=== PATIENT | female | born 1965 | race Caucasian/White ===

== ENCOUNTER 2020-05-09 10:27 | Emergency (ER) | payer OTHER, SELFPAY ==
--- NOTE | ~2020-05-09 | XR_ITS ---
EXAMINATION: THORACIC, LUMBAR AND SACROCOCCYGEAL SPINE. PLEURAL LEFT SCAPULA. LEFT RIBS WITH CHEST X-RAY. CLINICAL INFORMATION: Fell down the stairs. Pain. COMPARISON: None TECHNIQUE: 1 view chest and 3 views left RIBS. Left scapula 2 views. Thoracic spine 3 views. Lumbar spine 3 views. Sacrum and coccyx 2 views. FINDINGS: Chest: The lungs are well-expanded and clear of acute process heart size and pulmonary vascularity is normal. There is mild dextro scoliosis. Multiple views of left ribs reveal no visible left rib fracture. Left scapula: There is no visible acute fracture or bony abnormality. The soft tissues are normal. Dorsal spine: There is normal thoracic kyphosis. The vertebral heights, alignment and disc heights are normal. There is no visible acute fracture, dislocation or subluxation. There is mild dextroscoliosis mid dorsal spine. Lumbar spine: There is normal lumbar lordosis. The vertebral heights, alignment and disc heights are normal. No visible acute fracture, dislocation or lytic process seen. There is lumbarized S1 vertebra with a rudimentary S1-S2 disc. Sacrum/coccyx there is no visible fracture or dislocation. No bony abnormality. The soft tissues are normal. XR/XR sacrum coccyx min 2V IMPRESSION: Unremarkable chest exam and left ribs. No acute fracture seen. There is no visible acute fracture involving the left scapula. No acute fracture involving the dorsal or lumbar spine. Unremarkable sacrum and/or coccyx.
--- NOTE | ~2020-05-09 | CT_ITS ---
EXAMINATION: CT CERVICAL SPINE WITHOUT CONTRAST CLINICAL INFORMATION: Fall COMPARISON: None TECHNIQUE: Axial images through the cervical spine without contrast. This CT examination was performed using dose optimization techniques as appropriate, variously including the following: *Automated exposure control *Adjustment of mA and/or kV according to patient size (this includes techniques or standardized protocols for targeted exams where dose is matched to indication/reason for exam; i.e. extremities or head) *Use of iterative reconstruction technique DLP: 684 mGy-cm FINDINGS: Bone alignment is normal. No fracture or dislocation is seen. There is degenerative spondylosis and disc space narrowing at C5-C6 and C6-C7. There is degenerative spondylosis at C3-C4 and C4-C5. Prevertebral soft tissues are normal. There is shotty cervical lymphadenopathy. There is prominent soft tissue seen in the posterior oropharynx. The visualized lung apices are clear. CT/CT cervical spine wo con IMPRESSION: Degenerative changes. No fracture or dislocation seen. Diffuse shotty cervical lymphadenopathy and prominent soft tissue in the posterior oropharynx.
--- NOTE | ~2020-05-09 | XR_ITS ---
EXAMINATION: THORACIC, LUMBAR AND SACROCOCCYGEAL SPINE. PLEURAL LEFT SCAPULA. LEFT RIBS WITH CHEST X-RAY. CLINICAL INFORMATION: Fell down the stairs. Pain. COMPARISON: None TECHNIQUE: 1 view chest and 3 views left RIBS. Left scapula 2 views. Thoracic spine 3 views. Lumbar spine 3 views. Sacrum and coccyx 2 views. FINDINGS: Chest: The lungs are well-expanded and clear of acute process heart size and pulmonary vascularity is normal. There is mild dextro scoliosis. Multiple views of left ribs reveal no visible left rib fracture. Left scapula: There is no visible acute fracture or bony abnormality. The soft tissues are normal. Dorsal spine: There is normal thoracic kyphosis. The vertebral heights, alignment and disc heights are normal. There is no visible acute fracture, dislocation or subluxation. There is mild dextroscoliosis mid dorsal spine. Lumbar spine: There is normal lumbar lordosis. The vertebral heights, alignment and disc heights are normal. No visible acute fracture, dislocation or lytic process seen. There is lumbarized S1 vertebra with a rudimentary S1-S2 disc. Sacrum/coccyx there is no visible fracture or dislocation. No bony abnormality. The soft tissues are normal. XR/XR ribs LT min 3V w CXR1V IMPRESSION: Unremarkable chest exam and left ribs. No acute fracture seen. There is no visible acute fracture involving the left scapula. No acute fracture involving the dorsal or lumbar spine. Unremarkable sacrum and/or coccyx.
--- NOTE | ~2020-05-09 | XR_ITS ---
EXAMINATION: THORACIC, LUMBAR AND SACROCOCCYGEAL SPINE. PLEURAL LEFT SCAPULA. LEFT RIBS WITH CHEST X-RAY. CLINICAL INFORMATION: Fell down the stairs. Pain. COMPARISON: None TECHNIQUE: 1 view chest and 3 views left RIBS. Left scapula 2 views. Thoracic spine 3 views. Lumbar spine 3 views. Sacrum and coccyx 2 views. FINDINGS: Chest: The lungs are well-expanded and clear of acute process heart size and pulmonary vascularity is normal. There is mild dextro scoliosis. Multiple views of left ribs reveal no visible left rib fracture. Left scapula: There is no visible acute fracture or bony abnormality. The soft tissues are normal. Dorsal spine: There is normal thoracic kyphosis. The vertebral heights, alignment and disc heights are normal. There is no visible acute fracture, dislocation or subluxation. There is mild dextroscoliosis mid dorsal spine. Lumbar spine: There is normal lumbar lordosis. The vertebral heights, alignment and disc heights are normal. No visible acute fracture, dislocation or lytic process seen. There is lumbarized S1 vertebra with a rudimentary S1-S2 disc. Sacrum/coccyx there is no visible fracture or dislocation. No bony abnormality. The soft tissues are normal. XR/XR thoracic spine 3V IMPRESSION: Unremarkable chest exam and left ribs. No acute fracture seen. There is no visible acute fracture involving the left scapula. No acute fracture involving the dorsal or lumbar spine. Unremarkable sacrum and/or coccyx.
--- NOTE | ~2020-05-09 | XR_ITS ---
EXAMINATION: THORACIC, LUMBAR AND SACROCOCCYGEAL SPINE. PLEURAL LEFT SCAPULA. LEFT RIBS WITH CHEST X-RAY. CLINICAL INFORMATION: Fell down the stairs. Pain. COMPARISON: None TECHNIQUE: 1 view chest and 3 views left RIBS. Left scapula 2 views. Thoracic spine 3 views. Lumbar spine 3 views. Sacrum and coccyx 2 views. FINDINGS: Chest: The lungs are well-expanded and clear of acute process heart size and pulmonary vascularity is normal. There is mild dextro scoliosis. Multiple views of left ribs reveal no visible left rib fracture. Left scapula: There is no visible acute fracture or bony abnormality. The soft tissues are normal. Dorsal spine: There is normal thoracic kyphosis. The vertebral heights, alignment and disc heights are normal. There is no visible acute fracture, dislocation or subluxation. There is mild dextroscoliosis mid dorsal spine. Lumbar spine: There is normal lumbar lordosis. The vertebral heights, alignment and disc heights are normal. No visible acute fracture, dislocation or lytic process seen. There is lumbarized S1 vertebra with a rudimentary S1-S2 disc. Sacrum/coccyx there is no visible fracture or dislocation. No bony abnormality. The soft tissues are normal. XR/XR lumbar spine 2-3V IMPRESSION: Unremarkable chest exam and left ribs. No acute fracture seen. There is no visible acute fracture involving the left scapula. No acute fracture involving the dorsal or lumbar spine. Unremarkable sacrum and/or coccyx.
--- NOTE | ~2020-05-09 | XR_ITS ---
EXAMINATION: THORACIC, LUMBAR AND SACROCOCCYGEAL SPINE. PLEURAL LEFT SCAPULA. LEFT RIBS WITH CHEST X-RAY. CLINICAL INFORMATION: Fell down the stairs. Pain. COMPARISON: None TECHNIQUE: 1 view chest and 3 views left RIBS. Left scapula 2 views. Thoracic spine 3 views. Lumbar spine 3 views. Sacrum and coccyx 2 views. FINDINGS: Chest: The lungs are well-expanded and clear of acute process heart size and pulmonary vascularity is normal. There is mild dextro scoliosis. Multiple views of left ribs reveal no visible left rib fracture. Left scapula: There is no visible acute fracture or bony abnormality. The soft tissues are normal. Dorsal spine: There is normal thoracic kyphosis. The vertebral heights, alignment and disc heights are normal. There is no visible acute fracture, dislocation or subluxation. There is mild dextroscoliosis mid dorsal spine. Lumbar spine: There is normal lumbar lordosis. The vertebral heights, alignment and disc heights are normal. No visible acute fracture, dislocation or lytic process seen. There is lumbarized S1 vertebra with a rudimentary S1-S2 disc. Sacrum/coccyx there is no visible fracture or dislocation. No bony abnormality. The soft tissues are normal. XR/XR scapula LT IMPRESSION: Unremarkable chest exam and left ribs. No acute fracture seen. There is no visible acute fracture involving the left scapula. No acute fracture involving the dorsal or lumbar spine. Unremarkable sacrum and/or coccyx.
[2020-05-09 10:30] VITALS: BP 151/92; PULSE 81; RESP 20; TEMP 36.3; O2SAT 99; BMI 30.4
--- NOTE | 2020-05-09 12:00 | PC.NURSE ---
rectal exam performed by provider with assist of this nurse
--- NOTE | 2020-05-09 12:12 | PC.NURSE ---
pt to xray
--- NOTE | 2020-05-09 12:17 | ED.FALL ---
HPI - Fall General Chief Complaint: Fall Stated Complaint: FELL DOWN STAIRS Time Seen by Provider: 05/09/20 11:11 Source: patient Mode of arrival: ambulatory History of Present Illness HPI Narrative: 55-year-old female with no significant past medical history presenting to the ED complaining of neck, back, and buttock pain s/p mechanical slip and fall down a flight of stairs last night. Reports been fell down about 10-14 stairs due to her slippers, denies head trauma or LOC. Reports landed on back/buttock, has been ambulatory since the incident. Admits to left lower extremity tingling. Reports hesitancy when urinating due to buttock pain, denies urinary incontinence/retention, weakness, numbness, fever MD complaint: fall Onset (ago): day(s) Related Data Previous Rx's Medication Instructions Recorded acetaminophen [Tylenol Extra 500 mg PO Q6H PRN #20 tab 05/09/20 Strength] cyclobenzaprine 5 mg PO Q8H PRN 5 Days #14 tab 05/09/20 lidocaine [Lidoderm] 1 patch TOPICAL DAILY PRN #30 ea 05/09/20 MDD remove after 12 hours oxycodone-acetaminophen [Percocet] 1 tab PO Q8H PRN 3 Days #9 tab 05/09/20 Allergies Allergy/AdvReac Type Severity Reaction Status Date / Time morphine [Morphine] Allergy Unknown VOMITING- VIOLENTLY Unverified 11/22/19 14:47 ILL Review of Systems Review of Systems: Constitutional: No Fever, No Chills Gastrointestinal: No Nausea, No Vomiting Genitourinary: No Urinary Incontinence/retention Musculoskeletal: +joint pain, + Myalgias, No Joint Swelling Skin: No Skin Lesions, No rash Neuro: No Weakness, No Numbness, + Paresthesias Yes all other systems are reviewed and are negative [facility] Past Medical History Attestation statement: The following information was validated with the patient. Social History Social History Alcohol intake: former Smoking Status: Current every day smoker Use of substances other than those prescribed or required for medical reasons: Yes Substance Use Type: Marijuana Advance Directives: Yes Advance Directives Information Provided: Yes Advance Directives on File: No Physical Exam Vital Signs: Vital Signs: Last Vital Signs Temp 97.9 F 05/09/20 13:19 Pulse 72 05/09/20 13:19 Resp 16 05/09/20 13:19 BP 117/70 05/09/20 13:19 Pulse Ox 97 05/09/20 13:19 Body Mass Index 30.4 Const: General: cooperative and healthy appearing Orientation/consciousness: patient oriented x3 Limitations: no limitations HENMT: Head: Yes normal to inspection Ears: hearing grossly normal bilaterally General nose exam: Normal external nose present Face and sinus: Yes normal facial exam Eyes: General: appearance normal, both eyes and all related structures EOM: EOMs intact bilaterally Neck: Other: + midline cervical spinous tenderness. No step-off/deformity. Neck: Yes full ROM and No midline deformity Chest: Other: Left-sided lateral posterior chest/rib tenderness to palpation and left scapular tenderness to palpation Chest palpation & inspection: no crepitus and tenderness Resp: Effort & Inspection: normal respiratory effort Cardio: Rate: regular rate GI: Inspection: Yes normal to inspection Palpation (GI): Soft to palpation Back/Spine/Pelvis: Other: No midline thoracic/lumbar spinous tenderness or step-offs. + midthoracic abrasion. + paraspinal thoracic and lumbar spinous tenderness + coccyx tenderness. + left buttock ecchymosis/swelling and tenderness to palpation Pelvis stable Skin: Rashes: no rashes Wounds: no wounds Neuro: Other: No saddle anesthesia. Perianal sensation intact to light touch. Rectal tone intact General: patient oriented x3, gait normal, tone normal and moves all extremities Gait exam (Neuro): Normal gait present Motor exam (neuro): 5/5 motor strength present throughout Extrem: General: Yes normal to inspection Course Course Course Narrative: CT cervical spine wo con IMPRESSION: Degenerative changes. No fracture or dislocation seen. Diffuse shotty cervical lymphadenopathy and prominent soft tissue in the posterior oropharynx. XR ribs LT min 3V w CXR1V IMPRESSION: Unremarkable chest exam and left ribs. No acute fracture seen. There is no visible acute fracture involving the left scapula. No acute fracture involving the dorsal or lumbar spine. Unremarkable sacrum and/or coccyx. > imaging results discussed with patient including worrisome signs and symptoms and strict return precautions. She verbalized understanding feel safe for discharge home to follow-up with PCP MDM - Fall MDM Narrative Medical decision making narrative: 55-year-old female with no significant past medical history presenting to the ED complaining of neck, back, and buttock pain s/p mechanical slip and fall down a flight of stairs last night. On exam VSS, NAD, physical exam as above. + midline cervical spinous tenderness. No red flag symptoms no saddle anesthesia, rectal tone intact, perianal sensation intact. Rule out fracture/dislocation. Low concern for cauda equina/cord compression. Plan: Imaging, pain management, re-evaluated Differential Diagnosis Differential diagnosis: Likely fracture and compression fracture Medical Records Attestation: I reviewed the patient's medical records. Lab Data Attestation: I reviewed the patient's lab results. Discharge Plan Discharge Clinical Impression: Back pain, Acute neck pain, Fall Patient Disposition: Home, Self-Care Instructions: Back Pain (ED) Additional Instructions: Your imaging studies did not show any acute findings Your pain is likely musculoskeletal Flexeril is a muscle relaxer, take at night as it makes you drowsy, do not drive, drink alcohol, or operate machinery while taking it Lidoderm patches are numbing patches, apply to painful area Percocet is an opiate pain medication, take only main pain is severe for the next 3 days. In addition take Tylenol at home. However be aware Percocet as Tylenol mixed in, do not exceed 4 g of Tylenol and 1 day If symptoms persist or worsen, pain becomes unbearable, you developed urinary retention or incontinence, or weakness return to the ED Be sure to follow-up with her primary care doctor Prescriptions: New acetaminophen [Tylenol Extra Strength] 500 mg tablet 500 mg PO Q6H PRN (Reason: pain or fever) Qty: 20 RF: 0 lidocaine [Lidoderm] 5 % adhesive patch,medicated 1 patch topical DAILY MDD remove after 12 hours PRN (Reason: pain) Qty: 30 RF: 0 cyclobenzaprine 5 mg tablet 5 mg PO Q8H PRN (Reason: pain (scale score 7-10)) 5 Days Qty: 14 RF: 0 oxycodone-acetaminophen [Percocet] 5-325 mg tablet 1 tab PO Q8H PRN (Reason: pain, severe) 3 Days Qty: 9 RF: 0 Referrals: Physician,Unknown [Primary Care Provider] - 3 days Interventions: ED Discharge Assessment Last Done: 05/09/20 13:58 Discharge Date/Time: 05/09/20 13:58
[2020-05-09] MEDS: Acetaminophen 325 MG TABLET 650 MG PO (12:31)
[2020-05-09] MEDS: Cyclobenzaprine HCl 10 MG TABLET PO (12:31)
--- NOTE | 2020-05-09 12:34 | PC.NURSE ---
pt medicated per order
[2020-05-09 13:19] VITALS: BP 117/70; PULSE 72; RESP 16; TEMP 36.6; O2SAT 97
== END 2020-05-09 13:58 | disposition home or self-care (01) ==
PROVIDERS: Emergency Provider Emergency Medicine
DX: G89.11 Acute pain due to trauma (principal); M54.5 Low back pain; M54.2 Cervicalgia; R20.2 Paresthesia of skin; F17.200 Nicotine dependence, unspecified, uncomplicated; F12.90 Cannabis use, unspecified, uncomplicated
CPT/HCPCS: 71101; 72072; 72100; 72125; 72220; 73010; 99284

== ENCOUNTER 2020-05-15 10:35 | Emergency (ER) | payer OTHER, SELFPAY ==
--- NOTE | ~2020-05-15 | CT_ITS ---
EXAMINATION: CT ABDOMEN AND PELVIS WITHOUT CONTRAST CLINICAL INFORMATION: Pain COMPARISON: None TECHNIQUE: Multidetector volumetric imaging was performed from the superior aspect of the liver through the pubic symphysis. Sagittal and coronal reformatted images were obtained on the technologist's workstation. No oral or intravenous contrast. This CT examination was performed using dose optimization techniques as appropriate, variously including the following: *Automated exposure control *Adjustment of mA and/or kV according to patient size (this includes techniques or standardized protocols for targeted exams where dose is matched to indication/reason for exam; i.e. extremities or head) *Use of iterative reconstruction technique DLP: 710 mGy-cm FINDINGS: LUNG BASES: The lung bases are clear. LIVER, GALLBLADDER, AND BILIARY TREE: The liver is normal in size, shape, and attenuation. No focal hepatic lesion or biliary ductal dilatation is present. There is been prior cholecystectomy. Common duct unremarkable. PANCREAS: Unremarkable. SPLEEN: Unremarkable. ADRENAL GLANDS: Unremarkable. KIDNEYS AND URETERS: The kidneys are normal in size, shape, and attenuation. No hydronephrosis, hydroureter, or calculi seen. No perinephric stranding. BLADDER: Unremarkable. GASTROINTESTINAL TRACT: There is no bowel obstruction or inflammatory changes in the bowel or mesentery. The appendix is normal. There is no ascites or fluid collection. ABDOMINAL WALL: Small fat-containing ventral hernia 11 cm superior to the umbilicus measuring approximately 4 x 3 x 3 cm. There is borderline fat-containing umbilical hernia under 2 cm and borderline fatty herniation at the inguinal regions. LYMPH NODES: No lymphadenopathy. VASCULAR: Unremarkable. PELVIC VISCERA: No adnexal mass or pelvic ascites. The osseous structures below. OSSEOUS STRUCTURES: There is a subcutaneous crescent-shaped collection of fluid attenuation (2HU - 7HU) overlying the left gluteus muscles and measuring 3.3 x 12.8 cm x 12 cm in length. There is no fracture or destructive process. No suspicious bony abnormality. CT/CT abdomen pelvis wo con IMPRESSION: 1. Superficial crescent shaped fluid collection overlying left gluteus muscles 3.3 x 12.8 x 12.0 cm, possibly hematoma in the appropriate clinical setting. Clinically correlate. 2. Small fat-containing ventral hernia 4 x 3 cm. Borderline fat-containing umbilical and inguinal hernias. 3. No bowel obstruction or inflammatory changes in bowel or mesentery. Normal appendix.
[2020-05-15 12:14] VITALS: BP 135/87; PULSE 73; RESP 17; TEMP 36.6; O2SAT 99; BMI 30.4
--- NOTE | 2020-05-15 13:49 | ED.FALL ---
HPI - Fall General Chief Complaint: Fall Stated Complaint: fell back inj Time Seen by Provider: 05/15/20 13:44 Source: patient Mode of arrival: ambulatory Limitations: no limitations History of Present Illness HPI Narrative: This is a 55-year-old female who denies any significant past medical or surgical history she presents ambulatory with complaint of pain to the states she was seen here 6 days ago on 05/09/2020 after she had a slip and fall where she lost her footing and slipped down about 10 steps at home. States she was subsequently seen here in the ER had workup and she was sent home with pain patch and muscle relaxants states they have been helping but she has bruising on her coccyx and pain in the region along with left gluteus region. She denies any new injury. No GI symptoms. No chest pain or shortness of breath. States due to the bruising and the pain her family became concerned and told her come back here for re-evaluation. MD complaint: fall Onset (ago): day(s) Place fall occurred: home Loss of consciousness: none Symptoms prior to fall: none Related Data Previous Rx's Medication Instructions Recorded acetaminophen [Tylenol Extra 500 mg PO Q6H PRN #20 tab 05/09/20 Strength] cyclobenzaprine 5 mg PO Q8H PRN 5 Days #14 tab 05/09/20 lidocaine [Lidoderm] 1 patch TOPICAL DAILY PRN #30 ea 05/09/20 MDD remove after 12 hours oxycodone-acetaminophen [Percocet] 1 tab PO Q8H PRN 3 Days #9 tab 05/09/20 cyclobenzaprine 5 mg PO TID PRN #14 tab 05/15/20 ibuprofen 800 mg PO Q8H PRN #30 tab 05/15/20 lidocaine 1 patch TOPICAL Q24H PRN #10 ea 05/15/20 Allergies Allergy/AdvReac Type Severity Reaction Status Date / Time morphine [Morphine] Allergy Unknown VOMITING- VIOLENTLY Verified 05/15/20 12:24 ILL Review of Systems Review of Systems: Constitutional: No Weight loss, No Fever, No Chills, No Night Sweats, No Fatigue, No Malaise ENT/Mouth: No Hearing loss, No Ear Pain, No Nasal Congestion, No Sinus Pain, No Hoarseness, No sore throat, No Rhinorrhea, No Swallowing Difficulty Eyes: No Eye Pain, No Swelling, No Redness, No Foreign Body, No Discharge, No Vision Changes Cardiovascular: No Chest Pain, No SOB, No Dyspnea on Exertion, No Orthopnea, No Edema, No Palpitations Respiratory: No Cough, No Sputum, No Wheezing, No Smoke Exposure, No Dyspnea Gastrointestinal: No Nausea, No Vomiting, No Diarrhea, No Constipation, No abdominal Pain, No Hematochezia, No Melena Genitourinary: no irregular bleeding, No Dysuria, No Urinary Frequency, No Hematuria, No Urinary Incontinence, No Urgency, No Flank Pain, No Urinary Flow Changes, No Hesitancy Musculoskeletal: No joint pain, No Myalgias, No Joint Swelling, lower as noted per hpi Skin: No Skin Lesions, No rash Neuro: No Weakness, No Numbness, No Paresthesias, No Loss of Consciousness, No Dizziness, No Headache Psych: No Social Issues Heme/Lymph: No Bruising, No Bleeding,No Lymphadenopathy Endocrine: No Polyuria, No Polydipsia, No Temperature Intolerance Yes all other systems are reviewed and are negative [facility] Past Medical History Medical History Asthma HTN (hypertension) Social History Social History Alcohol intake: former Smoking Status: Current every day smoker Substance Use Type: Marijuana Advance Directives: No Advance Directives Information Provided: No Physical Exam Vital Signs: Vital Signs: Last Vital Signs Temp 97.9 F 05/15/20 15:36 Pulse 84 05/15/20 15:36 Resp 17 05/15/20 15:36 BP 157/67 H 05/15/20 15:36 Pulse Ox 100 05/15/20 15:36 Body Mass Index 30.4 Reviewed Const: Other: Patient ambulated into the room from the waiting room General: healthy appearing; No acute distress or intoxicated appearing Nutritional Appearance: average body habitus Orientation/consciousness: patient oriented x3 HENMT: Head: Yes normal to inspection Ears: hearing grossly normal bilaterally Eyes: General: appearance normal, both eyes and all related structures Visual Pham: normal visual pham by confrontation Neck: Neck: Yes normal visual inspection, No positive Brudzinski's sign, No positive Kernig's sign and No tender Thyroid: Thyroid normal Chest: Chest palpation & inspection: normal inspection of the chest, no crepitus and no tenderness Resp: Effort & Inspection: normal respiratory effort Auscultation: clear to auscultation bilaterally Cardio: Jugular venous distension: no JVD Rhythm: regular rhythm Heart sounds: S1 normal heart sound present and S2 normal heart sound present GI: Inspection: Yes normal to inspection Palpation (GI): Soft to palpation, nontender, no guarding and not rigid Percussion: Yes normal to percussion Auscultation: normal bowel sounds : General: Yes no CVA tenderness Back/Spine/Pelvis: Back: no CVA tenderness Back/spine/pelvis image: 1. She has bruising over the lower lumbar region that is bluish today yellow and over the left gluteus superior aspect with slightly more bruising that is 4 in x 6 in bluish with fading yellow. No erythema, no firm area. Bilaterally symmetrical. 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 No GI symptoms. No radiculopathy. No fever. Will get abdominal pelvis CT rule a subtle fracture versus hematoma. Will treat with Tylenol will defer narcotics. Reevaluation(s) Reevaluation #1: Resting comfortably CT findings reviewed with the patient. Will discharge home with supportive care she is agreeable and ambulates with steady straight gait. MDM - Fall Lab Data Labs: Lab Results 05/15/20 Range/Units 13:56 Urine Color YELLOW Urine Appearance CLEAR Urine pH 6.0 (5.0-8.0) Ur Specific [place] 1.020 (1.005-1.025) Urine Protein NEG (NEG-TRACE) MG/DL Urine Glucose (UA) NEG (NEG) MG/DL Urine Ketones NEG (NEG) MG/DL Urine Blood 2+ H (NEG) Urine Nitrite NEG (NEG) Ur Leukocyte Esterase NEG (NEG) Urine RBC 0-2 (0) /HPF Urine WBC 1-4 (0-4) /HPF Ur Squamous Epith Cells 1+ /LPF Urine Bacteria 3+ /LPF Discharge Plan Discharge Clinical Impression: Contusion of soft tissue Traumatic hematoma of buttock Qualifiers: Encounter type: initial encounter Qualified Code(s): S30.0XXA - Contusion of lower back and pelvis, initial encounter Patient Disposition: Home, Self-Care Instructions: Contusion in Adults (ED), Hematoma (ED) Additional Instructions: The CT scan of the abdomen pelvis did not show any acute bone fracture On exam there is bruising consistent with soft tissue injury There is small hematoma in the left gluteal region Warm compresses Gentle stretching Supportive cares reviewed Return if any concerns or worsening symptoms including; fever, loss of bowel or bladder control, abdominal pain, chest pain, back pain or any other concerning symptoms Otherwise schedule follow-up with her primary care doctor Thank you Prescriptions: New lidocaine 4 % adhesive patch,medicated 1 patch topical Q24H PRN (Reason: pain) Qty: 10 RF: 0 ibuprofen 800 mg tablet 800 mg PO Q8H PRN (Reason: pain) Qty: 30 RF: 0 cyclobenzaprine 5 mg tablet 5 mg PO TID PRN (Reason: muscle spasm) Qty: 14 RF: 0 No Action acetaminophen [Tylenol Extra Strength] 500 mg tablet 500 mg PO Q6H PRN (Reason: pain or fever) Qty: 20 RF: 0 lidocaine [Lidoderm] 5 % adhesive patch,medicated 1 patch topical DAILY MDD remove after 12 hours PRN (Reason: pain) Qty: 30 RF: 0 cyclobenzaprine 5 mg tablet 5 mg PO Q8H PRN (Reason: pain (scale score 7-10)) 5 Days Qty: 14 RF: 0 oxycodone-acetaminophen [Percocet] 5-325 mg tablet 1 tab PO Q8H PRN (Reason: pain, severe) 3 Days Qty: 9 RF: 0 Referrals: Natalee Early MD [Primary Care Provider] - 5 days
[2020-05-15 14:10] LABS: Glucose Urine UA NEG (NEG); Leukocyte Esterase Urine NEG (NEG); Nitrite Urine NEG (NEG); Urine Blood 2+ (NEG); Urine Ketones NEG (NEG); Urine Protein NEG (NEG-TRACE)
[2020-05-15 14:33] LABS: Appearance Urine CLEAR; Color Urine YELLOW
[2020-05-15 14:54] LABS: Bacteria Urine 3+ /LPF; RBC Urine 0-2 /HPF (0); Squamous Epithelial Cell Urine 1+ /LPF
[2020-05-15 15:36] VITALS: BP 157/67; PULSE 84; RESP 17; TEMP 36.6; O2SAT 100
[2020-05-15] MEDS: Acetaminophen 325 MG TABLET 975 MG PO (15:46)
== END 2020-05-15 16:29 | disposition home or self-care (01) ==
PROVIDERS: Nurse Practitioner Primary Care; Emergency Provider Emergency Medicine Emergency Medical Services; PCP Internal Medicine
DX: S30.0XXA Contusion of lower back and pelvis, initial encounter (principal); W10.9XXA Fall (on) (from) unspecified stairs and steps, initial encounter; Y93.89 Activity, other specified; Y92.019 Unspecified place in single-family (private) house as the place of occurrence of the external cause; Y99.9 Unspecified external cause status
CPT/HCPCS: 74176; 81001; 99284

== ENCOUNTER 2020-07-07 14:14 | Emergency (ER) | payer OTHER, SELFPAY ==
--- NOTE | ~2020-07-07 | XR_ITS ---
EXAMINATION: XR CHEST CLINICAL INFORMATION: Covid pneumonia COMPARISON: 05/09/2020 TECHNIQUE: Frontal view of the chest was obtained. FINDINGS: Aside from generalized hypoinflation, no significant abnormality is noted involving the heart, lungs, mediastinum, bony thorax or soft tissues. XR/XR chest 1V IMPRESSION: Unremarkable examination.
--- NOTE | ~2020-07-07 | CT_ITS ---
EXAMINATION: CT ANGIOGRAM OF THE CHEST WITH AND WITHOUT CONTRAST (CT PULMONARY ANGIOGRAM FOR PE) CLINICAL INFORMATION: COVID positive. Question PE COMPARISON: Incidentally included lung bases from chest CT 05/15/2020 TECHNIQUE: Prior to contrast administration, noncontrast localization images were obtained. Subsequently, multidetector volumetric imaging was performed from the thoracic inlet to below the diaphragms following the administration of 71 mL Omnipaque 350 intravenous contrast. No contrast reaction reported Sagittal, coronal, and MIP oblique sagittal reformatted images were obtained on the CT workstation, uploaded to PACS, and reviewed. This CT examination was performed using dose optimization techniques as appropriate, variously including the following: *Automated exposure control *Adjustment of mA and/or kV according to patient size (this includes techniques or standardized protocols for targeted exams where dose is matched to indication/reason for exam; i.e. extremities or head) *Use of iterative reconstruction technique Total exam dose-length product 525 mGy-cm FINDINGS: QUALITY OF STUDY/CONTRAST BOLUS: Satisfactory. PULMONARY ARTERIES: No central or segmental pulmonary emboli. THORACIC AORTA: No aneurysm or dissection. LUNG: There is a region of peripheral interlobular septal thickening and groundglass opacity in the medial aspect of the right lower lobe. Although atelectasis could have this appearance, viral COVID pneumonitis can have this appearance as well. There is a 3 mm groundglass opacity nodule in image 35/60. There are calcified granulomata. PLEURA: No pleural effusion or pneumothorax. MEDIASTINUM: Normal heart size. No pericardial effusion. No hilar or mediastinal lymphadenopathy. No evidence of septal bowing or right heart strain. CHEST WALL/AXILLA: No axillary or internal mammary lymphadenopathy. OSSEOUS STRUCTURES: No acute or suspicious osseous abnormality. UPPER ABDOMEN: Status post cholecystectomy. No adrenal mass. No reflux of contrast into the hepatic veins to suggest elevated right heart pressures. CT/CT angio chest PE protocol IMPRESSION: No pulmonary embolus seen. There is a region of interlobular septal thickening and groundglass opacity in the medial aspect of the right lower lobe new from the CT abdomen pelvis 05/15/2020. This has the appearance for COVID pneumonitis, although typically with more diffuse involvement. VTE: negative
[2020-07-07 14:24] VITALS: BP 142/87; PULSE 96; RESP 18; TEMP 37; O2SAT 95; BMI 29.6
[2020-07-07 15:31] VITALS: BP 110/77; PULSE 84; RESP 22; TEMP 36.6; O2SAT 97
--- NOTE | 2020-07-07 16:28 | ECG_ITS ---
Test Reason : DYSPNEA Blood Pressure : / mmHG Vent. Rate : 073 BPM Atrial Rate : 073 BPM P-R Int : 184 ms QRS Dur : 086 ms QT Int : 396 ms P-R-T Axes : 037 024 043 degrees QTc Int : 436 ms Normal sinus rhythm Normal ECG When compared with ECG of 15-JUL-2009 10:30, No significant change was found Referred By: Saurabh Ernst Electronically Signed By:ANDRA PEREZ
[2020-07-07] MEDS: 0.9 % Sodium Chloride 1,000 ML 999 ML IV (17:45)
[2020-07-07 18:23] LABS: MANUAL DIFF FLAG NO
[2020-07-07 18:27] LABS: Basophils Percent Auto 0.3 % (0-2); Eosinophils Percent Auto 0.3 % (0-4); Hematocrit 39.4 % (37-47); Hemoglobin 12.7 g/dl (12.0-16.0); Lymphocytes Absolute Auto 1.3 X10*3/uL (1.2-4.9); Lymphocytes Percent Auto 38.8 % (20-40); Mean Corpuscular HGB Conc 32.2 g/dl (31.0-35.0); Mean Corpuscular Hemoglobin 29.5 pg (27.0-33.0); Mean Corpuscular Volume 91.4 fL (80-98); Mean Platelet Volume 9.7 fL (9.4-12.3); Monocytes Absolute Auto 0.5 X10*3/uL (0.1-1.2); Monocytes Percent Auto 15.4 % (2-11); Neutrophils Absolute Auto 1.6 X10*3/uL (2.0-8.3); Neutrophils Percent Auto 45.2 % (45-73); Platelet Count 235 X10*3/uL (160-400); Red Blood Count 4.31 X10*6/uL (4.20-5.50); Red Cell Distribution Width 13.2 % (11.0-16.0); White Blood Count 3.5 X10*3/uL (4.8-10.8)
--- NOTE | 2020-07-07 18:33 | ED_ITS ---
HPI - General Adult General Chief complaint: Dyspnea Stated complaint: COVID + DIFF BREATHING COUGH Time Seen by Provider: 07/07/20 16:07 Source: patient Mode of arrival: ambulatory Limitations: no limitations History of Present Illness HPI narrative: Patient presents to the ED for coughing and shortness of breath f or 3 days. Patient states having COVID symptoms since this past Tuesday. Patient was diagnosed with COVID this past Tuesday. Patient denies any leg swelling, calf pain, coughing up blood or passing out. Patient states body aches. Patient states pleuritic chest pain Related Data Previous Rx's Medication Instructions Recorded acetaminophen [Tylenol Extra 500 mg PO Q6H PRN #20 tab 05/09/20 Strength] cyclobenzaprine 5 mg PO Q8H PRN 5 Days #14 tab 05/09/20 lidocaine [Lidoderm] 1 patch TOPICAL DAILY PRN #30 ea 05/09/20 MDD remove after 12 hours oxycodone-acetaminophen [Percocet] 1 tab PO Q8H PRN 3 Days #9 tab 05/09/20 cyclobenzaprine 5 mg PO TID PRN #14 tab 05/15/20 ibuprofen 800 mg PO Q8H PRN #30 tab 05/15/20 lidocaine 1 patch TOPICAL Q24H PRN #10 ea 05/15/20 amoxicillin-pot clavulanate 1 tab PO Q12H #14 tab 07/07/20 [Augmentin] dexamethasone [Decadron] 6 mg PO DAILY #10 tab 07/07/20 doxycycline hyclate 100 mg PO BID #14 cap 07/07/20 Allergies Allergy/AdvReac Type Severity Reaction Status Date / Time morphine [Morphine] Allergy Unknown VOMITING- VIOLENTLY Verified 05/15/20 12:24 ILL Review of Systems Review of Systems: Yes all other systems are reviewed and are negative Constitutional: Constitutional: Reports as per HPI, Reports no additional constitutional complaints, Reports body ache(s) and Reports chills Eyes: Eyes: Reports as per HPI and Reports no additional eye complaints ENT: Reports system reviewed and no additional complaints, except as documented and Reports as per HPI Cardiovascular: Cardiovascular: Reports as per HPI, Reports no additional cardiovascular complaints, Denies chest pain and Reports dyspnea Respiratory: Respiratory: Reports as per HPI, Reports no additional respiratory complaints, Reports cough, Reports pain on inspiration and Reports dyspnea Gastrointestinal: Gastrointestinal: Reports as per HPI and Reports no additional gastrointestinal complaints Genitourinary: Genitourinary: Reports no additional female genitourinary complaints and Reports as per HPI Musculoskeletal: Musculoskeletal: Reports no additional musculoskeletal complaints and Reports as per HPI Neurologic: Reports system reviewed and no additional complaints, except as documented and Reports as per HPI Psychiatric: Psychiatric: Reports no additional psychiatric complaints and Reports as per HPI [facility] Past Medical History Medical History (Updated 07/07/20 @ 21:14 by ANGELICA Navas) Aortic aneurysm Asthma Cholecystectomy planned HTN (hypertension) Social History Social History Alcohol intake: former Smoking Status: Light tobacco smoker Use of substances other than those prescribed or required for medical reasons: No Substance Use Type: Marijuana Advance Directives: Yes Advance Directives Information Provided: Yes Advance Directives on File: No Physical Exam Vital Signs: Vital Signs: Last Vital Signs Temp 97.8 F 07/07/20 15:31 Pulse 84 07/07/20 15:31 Resp 22 H 07/07/20 15:31 BP 110/77 07/07/20 15:31 Pulse Ox 97 07/07/20 15:31 Body Mass Index 29.6 Const: General: cooperative, healthy appearing, comfortable, no acute distress, well developed, alert, awake and Physically active Orientation/consciousness: patient oriented x3 HENMT: Head: Yes normal to inspection, Yes No palpable skull fracture present, Yes normocephalic and Yes atraumatic Eyes: General: appearance normal, both eyes and all related structures Neck: Neck: Yes normal visual inspection, Yes full ROM, Yes no lymphadenopathy, Yes no meningeal signs, Yes trachea midline, Yes supple and No tender Chest: Chest palpation & inspection: normal inspection of the chest and normal palpation of entire chest wall Resp: Effort & Inspection: normal respiratory effort and able to speak in complete sentences Auscultation: clear to auscultation bilaterally Cardio: Jugular venous distension: no JVD Heart sounds: S1 normal heart sound present and S2 normal heart sound present GI: Inspection: Yes normal to inspection and No abdominal wall ecchymosis Palpation (GI): Soft to palpation, not firm, nontender and no guarding : General: No CVA tenderness Back/Spine/Pelvis: Back: no CVA tenderness, No CVA tenderness and No back tenderness Skin: General skin exam: no rashes or lesions noted and elasticity normal Neuro: General: patient oriented x3 and no meningeal signs Cranial nerves: Yes CN's II-XII intact bilaterally Extrem: Other: Negative for any lower extremity swelling, pitting edema, redness, ot calf tenderness General: Yes normal to inspection and Yes full ROM Psych: Appearance: grossly normal, well kempt and not disheveled Course Course Course Narrative: Due to patient being COVID positive and stating shortness of breath send D-dimer to see patient at risk for PE. Patient was sent for chest x-ray. Lungs clear Reevaluation(s) Reevaluation #1: Patient troponin negative to have shortness of breath for 3 days. Chest x-ray negative for pneumonia. EKG negative for STEMI and is normal. D-dimer slightly elevated will be sent for chest CT to rule out PE Reevaluation #2: CT scan negative for PE but does show COVID pneumonitis. Patient will be discharged with antibiotics and Decadron. Medical Decision Making MDM Narrative Medical decision making narrative: COVID pneumonia Lab Data Result diagrams: 07/07/20 17:40 07/07/20 17:41 Labs: Lab Results 07/07/20 07/07/20 07/07/20 Range/Units 17:40 17:40 17:40 WBC 3.5 L (4.8-10.8) X10*3/uL RBC 4.31 (4.20-5.50) X10*6/uL Hgb 12.7 (12.0-16.0) g/dl Hct 39.4 (37-47) % MCV 91.4 (80-98) fL MCH 29.5 (27.0-33.0) pg MCHC 32.2 (31.0-35.0) g/dl RDW 13.2 (11.0-16.0) % Plt Count 235 (160-400) X10*3/uL MPV 9.7 (9.4-12.3) fL Immature Gran % (Auto) 0.0 (0.0-0.4) % Neut % (Auto) 45.2 (45-73) % Lymph % (Auto) 38.8 (20-40) % [place] % (Auto) 15.4 H (2-11) % Eos % (Auto) 0.3 (0-4) % Baso % (Auto) 0.3 (0-2) % Lymph # (Auto) 1.3 (1.2-4.9) X10*3/uL [place] # (Auto) 0.5 (0.1-1.2) X10*3/uL Eos # (Auto) 0.0 (0.0-0.4) X10*3/uL Baso # (Auto) 0.0 (0.0-0.2) X10*3/uL Abs Immat Gran (auto) 0.00 (0.00-0.03) X10*3/uL Absolute Neuts (auto) 1.6 L (2.0-8.3) X10*3/uL Absolute Nucleated RBC 0.000 (0.0-0.012) X10*3/uL Nucleated RBC % (auto) 0.0 (0.0-0.2) /100WBC PT 13.0 (10.8-13.0) SEC INR 1.1 (0.9-1.1) APTT 38.7 H (24.1-38.0) SEC D-Dimer 239 NG/ML Sodium (135-145) mmol/L Potassium (3.3-5.1) mmol/L Chloride (96-108) mmol/L Carbon Dioxide (22-29) mmol/L Anion Gap (12-20) BUN (9-16) mg/dL Creatinine (0.5-1.4) mg/dL Estim Creat Clear Calc Estimated GFR Random Glucose (60-115) mg/dL Calcium (8.4-10.2) mg/dL Ferritin (10-250) ng/mL Total Bilirubin (0.0-1.0) mg/dL Direct Bilirubin (0.0-0.5) mg/dL AST (5-31) U/L ALT (0-31) U/L Alkaline Phosphatase (39-117) U/L Lactate Dehydrogenase (122-220) U/L Troponin I High Sens < 3.5 (<3.5-17.0) ng/L B-Natriuretic Peptide 18 (<100) pg/mL Total Protein (6.5-8.0) g/dL Albumin (3.5-5.0) g/dL Lipase (8-78) U/L Procalcitonin ng/mL 07/07/20 07/07/20 Range/Units 17:40 17:41 WBC (4.8-10.8) X10*3/uL RBC (4.20-5.50) X10*6/uL Hgb (12.0-16.0) g/dl Hct (37-47) % MCV (80-98) fL MCH (27.0-33.0) pg MCHC (31.0-35.0) g/dl RDW (11.0-16.0) % Plt Count (160-400) X10*3/uL MPV (9.4-12.3) fL Immature Gran % (Auto) (0.0-0.4) % Neut % (Auto) (45-73) % Lymph % (Auto) (20-40) % [place] % (Auto) (2-11) % Eos % (Auto) (0-4) % Baso % (Auto) (0-2) % Lymph # (Auto) (1.2-4.9) X10*3/uL [place] # (Auto) (0.1-1.2) X10*3/uL Eos # (Auto) (0.0-0.4) X10*3/uL Baso # (Auto) (0.0-0.2) X10*3/uL Abs Immat Gran (auto) (0.00-0.03) X10*3/uL Absolute Neuts (auto) (2.0-8.3) X10*3/uL Absolute Nucleated RBC (0.0-0.012) X10*3/uL Nucleated RBC % (auto) (0.0-0.2) /100WBC PT (10.8-13.0) SEC INR (0.9-1.1) APTT (24.1-38.0) SEC D-Dimer NG/ML Sodium 138 (135-145) mmol/L Potassium 3.9 (3.3-5.1) mmol/L Chloride 103 (96-108) mmol/L Carbon Dioxide 25 (22-29) mmol/L Anion Gap 14 (12-20) BUN 10 (9-16) mg/dL Creatinine 0.75 (0.5-1.4) mg/dL Estim Creat Clear Calc 99.8 Estimated GFR > 60 Random Glucose 103 (60-115) mg/dL Calcium 8.7 (8.4-10.2) mg/dL Ferritin 233 (10-250) ng/mL Total Bilirubin 0.8 (0.0-1.0) mg/dL Direct Bilirubin 0.3 (0.0-0.5) mg/dL AST 24 (5-31) U/L ALT 31 (0-31) U/L Alkaline Phosphatase 86 (39-117) U/L Lactate Dehydrogenase 188 (122-220) U/L Troponin I High Sens (<3.5-17.0) ng/L B-Natriuretic Peptide (<100) pg/mL Total Protein 7.3 (6.5-8.0) g/dL Albumin 4.3 (3.5-5.0) g/dL Lipase 19 (8-78) U/L Procalcitonin 0.02 ng/mL ECG Data Interpretation: Normal sinus rhythm. With ventricular rate 73. MT interval 184. QRS 86. QTC 436. Negative STEMI Discharge Plan Discharge Clinical Impression: Pneumonia due to COVID-19 virus Patient Disposition: Home, Self-Care Instructions: COVID-19 (Coronavirus Disease 2019) (ED) Additional Instructions: Return to the ED immediately for any worsening chest pain, shortness of breath, swelling of lower extremities, calf pain, coughing up blood, passing out, any other concerning symptoms. Prescriptions: New amoxicillin-pot clavulanate [Augmentin] 875-125 mg tablet 1 tab PO Q12H Qty: 14 RF: 0 doxycycline hyclate 100 mg capsule 100 mg PO BID Qty: 14 RF: 0 dexamethasone [Decadron] 6 mg tablet 6 mg PO DAILY Qty: 10 RF: 0 No Action acetaminophen [Tylenol Extra Strength] 500 mg tablet 500 mg PO Q6H PRN (Reason: pain or fever) Qty: 20 RF: 0 lidocaine [Lidoderm] 5 % adhesive patch,medicated 1 patch topical DAILY MDD remove after 12 hours PRN (Reason: pain) Qty: 30 RF: 0 cyclobenzaprine 5 mg tablet 5 mg PO Q8H PRN (Reason: pain (scale score 7-10)) 5 Days Qty: 14 RF: 0 oxycodone-acetaminophen [Percocet] 5-325 mg tablet 1 tab PO Q8H PRN (Reason: pain, severe) 3 Days Qty: 9 RF: 0 lidocaine 4 % adhesive patch,medicated 1 patch topical Q24H PRN (Reason: pain) Qty: 10 RF: 0 ibuprofen 800 mg tablet 800 mg PO Q8H PRN (Reason: pain) Qty: 30 RF: 0 cyclobenzaprine 5 mg tablet 5 mg PO TID PRN (Reason: muscle spasm) Qty: 14 RF: 0 Referrals: Natalee Early MD [Primary Care Provider] - 2 days (COVID pneumonia. Head CT negative for PE.) Print Language: Hungarian
[2020-07-07] MEDS: Ketorolac Tromethamine 30 MG/ML VIAL IVPUSH (18:46)
[2020-07-07 18:48] LABS: D Dimer 239 NG/ML
[2020-07-07 18:48] LABS: Alanine Aminotransferase 31 U/L (0-31); Albumin Level 4.3 g/dL (3.5-5.0); Alkaline Phosphatase 86 U/L (39-117); Anion Gap 14 (12-20); Aspartate Amino Transferase 24 U/L (5-31); Bilirubin Direct 0.3 mg/dL (0.0-0.5); Bilirubin Total 0.8 mg/dL (0.0-1.0); Blood Urea Nitrogen 10 mg/dL (9-16); Calcium 8.7 mg/dL (8.4-10.2); Carbon Dioxide 25 mmol/L (22-29); Chloride 103 mmol/L (96-108); Creatinine Clr Calc Pharmacy 99.8; Estimated Glomerular Filt Rate > 60; Glucose Random 103 mg/dL (60-115); Lactate Dehydrogenase 188 U/L (122-220); Lipase 19 U/L (8-78); Potassium 3.9 mmol/L (3.3-5.1); Sodium 138 mmol/L (135-145); Total Protein 7.3 g/dL (6.5-8.0)
[2020-07-07 18:51] LABS: Troponin-I High Sensitivity < 3.5 ng/L (<3.5-17.0)
[2020-07-07 19:06] LABS: Procalcitonin 0.02 ng/mL
[2020-07-07 19:07] LABS: Ferritin 233 ng/mL (10-250)
[2020-07-07 19:25] LABS: INTERNATIONAL NORM RATIO 1.1 (0.9-1.1)
[2020-07-07] MEDS: iohexoL 350 MG/ML 100 ML INFUS..BTL IV (19:39)
[2020-07-07 19:45] LABS: Partial Thromboplastin Time 38.7 SEC (24.1-38.0)
[2020-07-07 21:06] LABS: B Type Natriuretic Peptide 18 pg/mL (<100)
== END 2020-07-07 21:53 | disposition home or self-care (01) ==
PROVIDERS: Physician Assistant; Emergency Provider Internal Medicine; PCP Internal Medicine
DX: U07.1 COVID-19 (principal); J12.82 Pneumonia due to coronavirus disease 2019; F12.90 Cannabis use, unspecified, uncomplicated; F17.200 Nicotine dependence, unspecified, uncomplicated; Z71.6 Tobacco abuse counseling; Z79.899 Other long term (current) drug therapy
CPT/HCPCS: 36415; 71045; 71275; 80053; 80076; 82248; 82728; 83615; 83690; 83880; 84145; 84484; 85025; 85379; 85610; 85730; 93005; 96365; 96375; 99285; J1885; Q9967

== ENCOUNTER 2021-03-11 14:45 | Emergency (ER) | payer OTHER, SELFPAY | END 2021-03-11 18:16 | disposition left against medical advice (07) | PROVIDERS: Emergency Provider Emergency Medicine | DX: K46.9 Unspecified abdominal hernia without obstruction or gangrene (principal) ==

== ENCOUNTER 2024-09-22 05:32 | Emergency (ER) | payer OTHER, SELFPAY ==
--- NOTE | ~2024-09-22 | XR_ITS ---
CLINICAL HISTORY: L. foot ankle pain s p injury. 3 view left foot Comparison: None provided Findings: No fractures or dislocations. No significant loss of joint space, osteophytes, or erosions. No ankle effusion. No radiopaque foreign body. IMPRESSION: 1. No acute findings. This document has been electronically signed by: Mcihael Fernandes MD on 09/22/2024 06:57:53
--- NOTE | ~2024-09-22 | XR_ITS ---
CLINICAL HISTORY: L. foot ankle pain s p injury. 3 view left ankle Comparison: None provided Findings: No acute fractures. Ankle mortise intact. No significant arthritic change or erosions. No ankle effusion. No radiopaque foreign body. IMPRESSION: 1. No acute findings. This document has been electronically signed by: Michael Fernandes MD on 09/22/2024 06:58:23
[2024-09-22 05:42] VITALS: BP 113/70; PULSE 76; RESP 15; TEMP 36.5; O2SAT 97; BMI 28.9
--- OUTSIDE RECORDS SUMMARY | 2024-09-22 05:58 | XMS_ITS | Clinical Summary ---
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 07/27/2024 10:19 ET Workstation ID: [id number] Transcribed By: Self Edit Transcribed Date: 07/27/2024 10:08 ET Narrative 07/27/2024 10:19 AM EDT HISTORY: Right lump/pain at 2 o'clock position. Office visit on July 25 describes overlying bruise. Right upper inner quadrant lump measuring 5 cm x 3.5 cm. Patient denies local trauma. STUDIES: 1. Bilateral diagnostic mammography with tomosynthesis and CAD 2. Targeted ultrasound of the right breast TECHNIQUE: Bilateral digital diagnostic mammography is obtained and read in conjunction with computer-aided detection. Tomosynthesis as well as 2-D C view imaging were obtained. COMPARISON: Comparison made to multiple prior, most recent February 21, 2014, and most remote March 14, 2009. RIGHT BREAST: Triangular skin marker indicating the location of the palpable concern is located in the immediate vicinity of the nipple. There is approximately 2.7 cm heterogeneous mass mixed with fat density and hyperdense components in the immediate subareolar region (MLO 25/74, CC 22/61). No suspicious calcifications are seen. Targeted ultrasound of the right breast was performed at the location of the mammographic finding/palpable concern. The survey shows a 2.6 x 1.2 x 2.3 cm heterogeneous hyperechoic mass with multiple internal cystic components at 12 o'clock position subareolar region. No internal vascularity demonstrated with color Doppler evaluation. Note that the overlying skin has moderate size bruise. LEFT BREAST: No significant masses, suspicious calcifications or other abnormalities are seen. Procedure Note Teri Marie MD - 07/27/2024 HISTORY: Right lump/pain at 2 o'clock position. Office visit on July 25describes overlying bruise. Right upper inner quadrant lump measuring 5cm x 3.5 cm. Patient denies local trauma. STUDIES: 1. Bilateral diagnostic mammography with tomosynthesis and CAD 2. Targeted ultrasound of the right breast TECHNIQUE: Bilateral digital diagnostic mammography is obtained and readin conjunction with computer-aided detection. Tomosynthesis as well as2-D C view imaging were obtained. COMPARISON: Comparison made to multiple prior, most recent February, and most remote March 14, 2009. RIGHT BREAST: Triangular skin marker indicating the location of thepalpable concern is located in the immediate vicinity of the nipple.There is approximately 2.7 cm heterogeneous mass mixed with fat densityand hyperdense components in the immediate subareolar region (MLO 25/74,CC 22/61). No suspicious calcifications are seen. Targeted ultrasound of the right breast was performed at the location ofthe mammographic finding/palpable concern. The survey shows a 2.6 x 1.2 x2.3 cm heterogeneous hyperechoic mass with multiple internal cysticcomponents at 12 o'clock position subareolar region. No internalvascularity demonstrated with color Doppler evaluation. Note that theoverlying skin has moderate size bruise. LEFT BREAST: No significant masses, suspicious calcifications or otherabnormalities are seen. IMPRESSION: RIGHT BREAST: Palpable concern correlates with 2.6 cm area that hasmammographic and sonographic features compatible with resolving hematoma.A short-term follow-up is recommended with right mammogram (spotcompression MLO and CC view with nipple in profile) and right breastultrasound. LEFT BREAST: Negative, no evidence of malignancy. Normal intervalfollow-up is recommended in 12 months. Findings and recommendations were discussed with the patient at completionof the study. BREAST DENSITY: B - There are scattered areas of fibroglandular density. BI-RADS CATEGORY: 3 - PROBABLY BENIGN RECOMMENDATION: Mammography: Short Interval Follow-up is recommended for the right breastin 3 months. Ultrasound: Short Interval Follow-up is recommended for the Right Breast.In 3 months Mammo Location: [facility], [address] [place] [address], [id number], . -------- FINAL REPORT -------- Dictated By: Teri Marie Dictated Date: 07/27/2024 10:08 ET Assigned Physician: Teri Marie Reviewed and Electronically Signed By: Teri Marie Signed Date: 07/27/2024 10:19 ET Workstation ID: [id number] Transcribed By: Self Edit Transcribed Date: 07/27/2024 10:08 ET Carina DOMINGUEZ IMG BI PROCEDURES Final Result * (ABNORMAL) Comprehensive metabolic panel (05/16/2024 10:46 AM EDT) Pathologist [facility] Sodium 138 133 - 145 mmol/L LAB CHEMISTRY METHOD 05/16/2024 2:49 PM [facility] Potassium 4.6 3.5 - 5.5 mmol/L LAB CHEMISTRY METHOD 05/16/2024 2:49 PM [facility] Chloride 108 96 - 110 mmol/L LAB CHEMISTRY METHOD 05/16/2024 2:49 PM [facility] CO2 26 21 - 32 mmol/L LAB CHEMISTRY METHOD 05/16/2024 2:49 PM [facility] Anion Gap 4 3 - 11 LAB CHEMISTRY METHOD 05/16/2024 2:49 PM [facility] Glucose 112(H) 70 - 100 mg/dL LAB CHEMISTRY METHOD 05/16/2024 2:49 PM [facility] BUN 17 5 - 25 mg/dL LAB CHEMISTRY METHOD 05/16/2024 2:49 PM [facility] Creatinine 0.89 0.50 - 1.10 mg/dL LAB CHEMISTRY METHOD 05/16/2024 2:49 PM [facility] eGFR 75 >=60 mL/min/1. 73m2 LAB CHEMISTRY METHOD 05/16/2024 2:49 PM [facility] Comment:Calculation based on the Chronic Kidney Disease Epidemiology Collaboration (CKD-EPI) equation refit without adjustment for race. BUN/Creatinine Ratio 19.1 LAB CHEMISTRY METHOD 05/16/2024 2:49 PM EDT [facility] Calcium 9.5 8.5 - 10.5 mg/dL LAB CHEMISTRY METHOD 05/16/2024 2:49 PM T [facility] AST (SGOT) 10 10 - 42 unit/L LAB CHEMISTRY METHOD 05/16/2024 2:49 PM [facility] ALT (SGPT) 22 10 - 60 unit/L LAB CHEMISTRY METHOD 05/16/2024 2:49 PM T [facility] Alkaline Phosphatase 100 42 - 121 unit/L LAB CHEMISTRY METHOD 05/16/2024 2:49 PM [facility] Total Protein 7.2 6.0 - 8.0 g/dL LAB CHEMISTRY METHOD 05/16/2024 2:49 PM [facility] Albumin 3.7 3.2 - 5.0 g/dL LAB CHEMISTRY METHOD 05/16/2024 2:49 PM [facility] Total Bilirubin 0.6 0.0 - 1.4 mg/dL LAB CHEMISTRY METHOD 05/16/2024 2:49 PM [facility] Blood Venous blood specimen / Unknown Venipuncture / Unknown 05/16/2024 10:46 AM EDT 05/16/2024 10:46 AM EDT Tra Castano MD LAB BLOOD ORDERABLES F inal Result [facility] [address] [place] [address], * Depression Screening (09/20/2023) [facility] Abstracted Historical Provider HEALTH MAINTENANCE Final Result * (ABNORMAL) Lipid panel (06/23/2023) Pathologist [facility] LDL/HDL Ratio 3 0 - 4 Triglycerides 142 0 - 150 mg/dL Cholesterol 237(A) 0 - 200 mg/dL HDL 72 >=40 mg/dL LDL Cholesterol 137(A) 0 - 100 mg/dL Blood Venous blood specimen / Unknown Result [facility] Provider LAB BLOOD ORDERABLES Mounika l Result * Cervical Cancer Screening: HPV (02/07/2023) [facility] Cervical Cancer Screening: HPV Negative, Abstracted [facility] Provider HEALTH MAINTENANCE Final Result * HIV Screening (04/27/2016) [facility] HIV Screening Abstracted [facility] Provider HEALTH MAINTENANCE Final Result * Colonoscopy (12/09/2015) [facility] Colonoscopy No Interpretation , Abstracted Anatomical Region Laterality Modality Other [facility] Provider HEALTH MAINTENANCE Final Result * Hepatitis C Screening (04/16/2014) [facility] Hepatitis C Screening Abstracted [facility] Provider HEALTH MAINTENANCE Final Result from Last 3 Months or Most Recently Relevant to Health Maintenance Insurance [id number] [id number] [facility] [employer] 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
[2024-09-22 07:29] VITALS: BP 112/74; PULSE 68; RESP 17; TEMP 36.4; O2SAT 97
--- NOTE | 2024-09-22 07:34 | PC.NURSE ---
This RN assumed care of patient @ 0700. Patient A&O x 3. Patient presents to ED c/o left foot pain non radianting rated 8/10 after fan had falling on her foot. +[facility] PAtient able to wiggle toes but states it hurts to move them . Provider in to see patient. VSS and up to date.
--- NOTE | 2024-09-22 08:12 | ED_ITS ---
HPI - General Adult General Chief complaint: Extremity Injury, Lower Stated complaint: left foot injury dropped a fan on it Time Seen by Provider: 09/22/24 08:08 Source: patient Mode of arrival: ambulatory Limitations: no limitations History of Present Illness ED Provider: Tali Stark PA-C HPI narrative: Patient is a 59 year old assigned female at with a history of tobacco use and HTN presenting to the emergency department today with left foot pain. Patient states that last night she dropped a fan on her left foot causing pain. Patient denies any dizziness, lightheadedness, abdominal pain, nausea, vomiting, fever, chills, blurry vision, double vision, loss of vision, chest pain, difficulty breathing, shortness of breath, back pain, night sweats, pain with urination, increased urinary frequency, increased urinary urgency, blood in her urine or stool, syncope or a near syncopal episode, bowel incontinence, bladder incontinence, or any other complaints at this time. Onset (ago): day(s) (1) Location: left and lower extremity Relieving factors: none Exacerbating factors: none Associated symptoms: denies other symptoms Treatments prior to arrival: none Related Data Previous Rx's ?Medication ?Instructions ?Recorded acetaminophen 500 mg tablet 500 mg PO Q6H PRN pain or fever 05/09/20 (Tylenol Extra Strength) #20 tabs cyclobenzaprine 5 mg tablet 5 mg PO Q8H PRN pain (scal e score 05/09/20 7-10) 5 days #14 tabs lidocaine 5 % topical patch 1 patch topical DAILY PRN pain #30 05/09/20 (Lidoderm) ea oxycodone-acetaminophen 5 mg-325 1 tab PO Q8H PRN pain , severe 3 05/09/20 mg tablet (Percocet) days #9 tabs cyclobenzaprine 5 mg tablet 5 mg PO TID PRN muscle spa sm #14 05/15/20 tabs ibuprofen 800 mg tablet 800 mg PO Q8H PRN pain #30 t abs 05/15/20 lidocaine 4 % topical patch 1 patch topical Q24H PRN p ain #10 05/15/20 ea amoxicillin 875 mg-potassium 1 tab PO Q12H #14 tabs clavulanate 125 mg tablet (Augmentin) dexamethasone 6 mg tablet 6 mg PO DAILY #10 tabs 07/07 (Decadron) doxycycline hyclate 100 mg capsule 100 mg PO BID #14 c aps 07/07/20 Allergies Allergy/AdvReac Type Severity Reaction Status Date / Time morphine (Morphine) Allergy Unknown VOMITING- VIOLENTLY Verified 09/22/24 05:45 ILL Review of Systems Constitutional: Constitutional: Reports no additional constitutional complaints, Denies chills, Denies fever(s) and Denies night sweats Eyes: Eyes: Reports no additional eye complaints, Denies blurry vision, Denies change in vision, Denies diplopia, Denies eye discharge, Denies loss of vision and Denies eye pain ENT: Denies dizziness Cardiovascular: Cardiovascular: Reports no additional cardiovascular complaints, Denies chest pain, Denies lightheadedness, Denies Loss of Consciousness and Denies dyspnea Respiratory: Respiratory: Reports no additional respiratory complaints and Denies dyspnea Gastrointestinal: Gastrointestinal: Reports no additional gastrointestinal complaints, Denies abdominal pain, Denies melena, Denies hematochezia, Denies change in bowel habits and Denies change in stool character Genitourinary: Genitourinary: Denies hematuria, Denies urinary frequency, Denies dysuria, Denies urinary incontinence, Denies urinary hesitancy and Denies urinary urgency Musculoskeletal: Musculoskeletal: Reports no additional musculoskeletal complaints, Denies numbness and Denies tingling Comments: left foot pain Neurologic: Denies dizziness, Denies loss of vision, Denies numbness and Denies tingling Psychiatric: Psychiatric: Reports no additional psychiatric complaints Endocrine: Endocrine: Reports no additional endocrine complaints Hematologic/Lymphatic: Hematologic/Lymphatic: Reports no additional hematologic/lymphatic complaints Allergic/Immunologic: Allergic/Immunologic: Reports no additional allergic/immunologic complaints [facility] Past Medical History Attestation statement: The following information was validated with the patient. Source: old records reviewed and nursing notes reviewed Medical History Cholecystectomy planned Aortic aneurysm Asthma HTN (hypertension) Social History Social History Alcohol intake: former Substance Use Type: Marijuana Physical Exam ED Vital Signs: Vital Signs - 24 hr 09/22/24 05:42 09/22/24 07:29 09/22/24 08:59 Temperature 97.7 F 97.6 F 98.3 F Pulse Rate 76 68 68 Respiratory Rate 15 17 14 Blood Pressure 113/70 112/74 152/68 H Pulse Oximetry 97 97 98 Oxygen Delivery Method Room Air Room Air Room Air BMI result Body Mass Index 28.9 Const General: cooperative, no acute distress, alert and awake Nutritional Appearance: well nourished Orientation/consciousness: patient oriented x3 HENMT Head: Yes normal to inspection and Yes atraumatic Ears: hearing grossly normal bilaterally and external ears normal General nose exam: Normal external nose present, no nasal discharge noted and no epistaxis Face and sinus: Yes normal facial exam, No abrasion and No laceration Mouth: Normal oral and palatal mucosa present, no drooling and no muffled voice Eyes General: appearance normal, both eyes and all related structures Periorbital: periorbital findings normal Eyelids: Yes eyelids normal Conjunctivae: conjunctivae normal Pupils: Equal, round and reactive pupils present EOM: EOMs intact bilaterally Neck Neck: Yes normal visual inspection, Yes full ROM and Yes no lymphadenopathy Resp Effort & Inspection: normal respiratory effort and able to speak in complete sentences Neuro General: patient oriented x3, moves all extremities and CN's II-XI intact bilaterally Cranial nerves: Yes Equal, round and reactive pupils present Cognition (Neuro): normal cognition Extrem General: Yes normal to inspection, Yes full ROM and Yes capillary refill normal Psych Appearance: grossly normal Mental Status: mental status grossly normal Affect: normal affect Attitude: cooperative Thought process: Normal thought process present Thought content: Normal thought content present Insight: Good insight present (Psych) Medications Administered Discontinued Medications Generic Name Dose Route Start Last Admin Trade Name Freq PRN Reason Stop Dose Admin Acetaminophen 975 mg 09/22/24 06:23 09/22/24 06:31 Acetaminophen 325 Mg Tablet PO 09/22/24 06:24 975 mg ONCE ONE Administration Procedures Orthopedic Splinting/Casting Injury #1: Side: left Lower Extremity Injury Location: foot Lower Extremity Immobilizer: boot orthosis Medical Decision Making Medical Decision Making MDM Narrative: Patient is a 59 year old assigned female at with a history of tobacco use and HTN presenting to the emergency department today with left foot pain. Patient's physical exam was unremarkable. Patient's left foot and ankle x-rays showed no acute process. I explained my physical exam findings as well as all test results to the patient. I answered all questions asked by the patient. Patient stated that she was having some pain with walking and would prefer to be placed in a walking boot. Patient's left foot was placed in a walking boot, without incident. Patient's PMS was intact prior to and after walking boot placement. I stressed the importance of the patient taking her medication as directed (either prescribed or as the over the counter packaging recommends). I stressed the importance of the patient following up with her primary care provider. I stressed the importance of the patient returning to the emergency department immediately if her symptoms were to worsen or if she were to develop any dizziness, shortness of breath, difficulty breathing, chest pain, blurry vision, loss of vision, nausea, vomiting, abdominal pain, fever, chills, back pain, or any other complaints. Patient verbalized agreement and understanding with this treatment plan and discharge. Differential Diagnosis Differential Diagnoses: The differential diagnosis associated with the presentation includes Left foot contusion Left foot sprain Left foot fracture Admission/Observation Consideration of admission/observation: Escalation of care including admiss ion/observation considered Patient would have been admitted to the hospital had her work up had any findings where hospital admission was appropriate and her clinical presentation warranted hospital admission. Independent Interpretation I performed an independent interpretation of an: Plain X-Ray Interpretation: My interpretation is in agreement with the radiologist's impression of these imaging studies. CLINICAL HISTORY: L. foot ankle pain s p injury. 3 view left ankle Comparison: None provided Findings: No acute fractures. Ankle mortise intact. No significant arthritic change or erosions. No ankle effusion. No radiopaque foreign body. IMPRESSION: 1. No acute findings. This document has been electronically signed by: Michael Fernandes MD on 09/22/2024 06:58:23 Dictated By: Michael Fernandes MD Signed By: Electronically signed by Michael Fernandes MD 09/22/24 0659 CLINICAL HISTORY: L. foot ankle pain s p injury. 3 view left foot Comparison: None provided Findings: No fractures or dislocations. No significant loss of joint space, osteophytes, or erosions. No ankle effusion. No radiopaque foreign body. IMPRESSION: 1. No acute findings. This document has been electronically signed by: Michael Fernandes MD on 09/22/2024 06:57:53 Dictated By: Michael Fernandes MD Signed By: Electronically signed by Michael Fernandes MD 09/22/24 0659 Radiology Impression Discussion of test interpretation with radiology: I have reviewed the radiologist's reading. Discharge Plan Discharge Clinical Impression: Foot sprain Qualifiers: Encounter type: initial encounter Laterality: left Qualified Code(s): S93.602A - Unspecified sprain of left foot, initial encounter Contusion of foot Qualifiers: Encounter type: initial encounter Laterality: left Qualified Code(s): S90.32XA - Contusion of left foot, initial encounter Patient Disposition: Home, Self-Care Instructions: Foot Contusion (ED), Foot Sprain (ED), Walking Boot (ED) Additional Instructions: Use the walking boot while ambulating for 2 weeks. Follow up with your primary care provider. Return to the emergency department immediately if your symptoms worsen or if you develop any numbness, tingling, dizziness, shortness of breath, difficulty breathing, chest pain, blurry vision, loss of vision, nausea, vomiting, abdominal pain, fever, chills, back pain, or any other complaints. Please see the information below about our Patient Portal. If you are not yet enrolled in the [facility] Patient Portal, you will receive an enrollment email invitation following your visit to any [facility] care setting. You may also self-enroll in the Patient Portal by visiting our website: [email or web address] The following information is required to access the Patient Portal: - Your [facility] Medical Record Number - Your personal home email address (must match what is in your electronic medical record, Registration staff can assist with this) - Name - Date of Capabilities of the Patient Portal: - Message some providers - View upcoming appointments - Access your health summary, medical history, and visit history - View current conditions and allergies - View procedure and lab results - View your medications, including guidelines, side effects, and precautions - Complete pre-appointment questionnaires requested by your provider - Ready summary reports of your office visits and procedures To access the Patient Portal Mobile Abhay, follow these directions: - Search Estimize in the Abhay Store or [employer] Store - Download the Abhay - Search for [facility] - Enter your login/password Prescriptions: No Action acetaminophen [Tylenol Extra Strength] 500 mg tablet 500 mg PO Q6H PRN (Reason: pain or fever) Qty: 20 0RF lidocaine [Lidoderm] 5 % adhesive patch,medicated 1 patch topical DAILY MDD remove after 12 hours PRN (Reason: pain) Qty: 30 0RF Rx Instructions: leave on most painful area for up to 12 hrs cyclobenzaprine 5 mg tablet 5 mg PO Q8H PRN (Reason: pain (scale score 7-10)) 5 Days Qty: 14 0RF oxycodone-acetaminophen [Percocet] 5-325 mg tablet 1 tab PO Q8H PRN (Reason: pain, severe) 3 Days Qty: 9 0RF amoxicillin-pot clavulanate [Augmentin] 875-125 mg tablet 1 tab PO Q12H Qty: 14 0RF doxycycline hyclate 100 mg capsule 100 mg PO BID Qty: 14 0RF dexamethasone [Decadron] 6 mg tablet 6 mg PO DAILY Qty: 10 0RF lidocaine 4 % adhesive patch,medicated 1 patch topical Q24H PRN (Reason: pain) Qty: 10 0RF Rx Instructions: may leave on for up to 12 hrs ibuprofen 800 mg tablet 800 mg PO Q8H PRN (Reason: pain) Qty: 30 0RF cyclobenzaprine 5 mg tablet 5 mg PO TID PRN (Reason: muscle spasm) Qty: 14 0RF Referrals: Shayy Franklin MD [Primary Care Provider, Internal Medicine] Interventions: ED Discharge Assessment Last Done: 09/22/24 08:59 Discharge Date/Time: 09/22/24 09:04 Print Language: Tunisian
[2024-09-22 08:59] VITALS: BP 152/68; PULSE 68; RESP 14; TEMP 36.8; O2SAT 98
== END 2024-09-22 09:04 | disposition home or self-care (01) ==
PROVIDERS: Emergency Provider Emergency Medicine; PCP Internal Medicine
DX: S93.602A Unspecified sprain of left foot, initial encounter (principal); S90.32XA Contusion of left foot, initial encounter; W20.8XXA Other cause of strike by thrown, projected or falling object, initial encounter; Y93.89 Activity, other specified; Y92.009 Unspecified place in unspecified non-institutional (private) residence as the place of occurrence of the external cause; Y99.9 Unspecified external cause status
CPT/HCPCS: 73610; 73630; 99283; 99284

== ENCOUNTER → 2024-09-22 06:35 | Outpatient (BNV) | payer OTHER, SELFPAY | PROVIDERS: PCP Internal Medicine; Visit Provider Radiology Diagnostic Radiology | DX: M25.572 Pain in left ankle and joints of left foot (principal); M79.672 Pain in left foot | CPT/HCPCS: 73610; 73630 ==